=== PATIENT | female | born 1955 ===

== ENCOUNTER 2022-04-10 09:26 | Day surgery (SDC) | payer OTHER ==
[~2022-04-10] VITALS: Ht 152.4 cm; Wt 56.7 kg
[~2022-04-10 09:26] MED LIST: ALTACE2.5 MG PO; CRESTOR10 MG PO; FENO PO; GLUMETZA500 MG PO; LEXAP PO; MULTIVITAMIN PO; PROLIA
== END 2022-04-10 19:35 | disposition home or self-care (01) ==
LOC: CIR.AMB 09:26
PROVIDERS: ATTEND Urology
DX: N20.0 Calculus of kidney (principal); Z20.822 Contact with and (suspected) exposure to COVID-19; J45.909 Unspecified asthma, uncomplicated; E11.9 Type 2 diabetes mellitus without complications; Z79.84 Long term (current) use of oral hypoglycemic drugs
CPT/HCPCS: 52356; C1758